=== PATIENT | female | born 1995 | race Caucasian/White ===

== ENCOUNTER 2016-10-10 11:14 | Emergency (ER) | payer BC ==
[2016-10-10 12:02] VITALS: BP 121/67
--- NOTE | 2016-10-10 13:22 | UC ---
Complaint Female HPI - HPI Summary HPI Summary: 20 yo F has been self cathing since age 5, last UTI age 6. Pt has segmental spinal dysgenesis. Had surgeries when 4 months old and fused her T10-L2 and pt has neurogenic bladder. Pt has feeling like she has to go to the bathroom alot since 10/05/16. Pt caths, and then 20 mins feels like she has to go again. No blood. Pt states urine also looks cloudy. No fever. No back pain. No dysuria when she is cathing. - History Of Current Complaint Chief Complaint: UCGU Stated Complaint: URINARY Time Seen by Provider: 10/10/16 13:13 Hx Obtained From: Patient Hx Last Menstrual Period: 09/26/16 Onset/Duration: Gradual Onset, Lasting Days, Still Present Timing: Constant Severity Currently: None Pain Intensity: 0 Pain Scale Used: 0-10 Numeric Character: Not Applicable - just urgency Aggravating Factor(s): Nothing Alleviating Factor(s): Nothing Associated Signs And Symptoms: Negative: Fever, Back Pain, Vaginal Bleeding/ Discharge, Vaginal Discharge - Risk Factors Ectopic Risk Factor: Negative Ovarian Torsion Risk Factor: Negative - Allergies/Home Medications Allergies/Adverse Reactions: Allergies Allergy/AdvReac Type Severity Reaction Status Date / Time No Known Allergies Allergy Verified 10/10/16 12:02 PMH/Surg Hx/FS Hx/Imm Hx Previously Healthy: No - spinal fusion since age 4months - Surgical History Surgical History: Yes Surgery Procedure, Year, and Place: 2-back surgeries, bilateral hip surgery, right knee - Family History Known Family History: Positive: Cardiac Disease - grandfather with bad valve - Social History Occupation: Student Alcohol Use: None Substance Use Type: None Smoking Status (MU): Never Smoked Tobacco Review of Systems Constitutional: Negative Skin: Negative Eyes: Negative ENT: Negative Respiratory: Negative Cardiovascular: Negative Gastrointestinal: Negative Genitourinary: Frequency, Urgency Motor: Negative Neurovascular: Negative Musculoskeletal: Negative Neurological: Negative Psychological: Negative All Other Systems Reviewed And Are Negative: Yes Physical Exam Triage Information Reviewed: Yes Appearance: Well-Appearing, No Pain Distress, Well-Nourished Vital Signs: Initial Vital Signs Temp 97.8 F 10/10/16 11:58 Pulse 64 10/10/16 11:58 Resp 16 10/10/16 11:58 BP 121/67 10/10/16 11:58 Pulse Ox 100 10/10/16 11:58 Vital Signs Reviewed: Yes Eyes: Positive: Conjunctiva Clear ENT: Positive: Normal ENT inspection Neck: Positive: Supple Respiratory: Positive: No respiratory distress Cardiovascular: Positive: RRR, Pulses Normal, Brisk Capillary Refill Abdomen Description: Positive: Nontender, No Organomegaly, Soft. Negative: CVA Tenderness (R), CVA Tenderness (L), Distended, Guarding, Hepatomegaly, McBurney' s Point Tenderness, Peritoneal Signs, Pulsatile Mass, Splenomegaly Bowel Sounds: Positive: Present Musculoskeletal: Positive: Strength Intact, ROM Intact Neurological: Positive: Alert, Muscle Tone Normal Psychological Exam: Normal Skin Exam: Normal Complaint Female Dx - Course Course Of Treatment: UA 500 wbc's, no blood, 1.010. UCG neg. Pt sees Dr. Montgomery in [place] for urology. Has Dr. Tresa Macedo is pt's primary in [place] - Differential Dx/Diagnosis Differential Diagnosis/HQI/PQRI: Urinary Tract Infection Provider Diagnoses: UTI. neurogenic bladder Discharge - Discharge Plan Condition: Stable Disposition: HOME Prescriptions: Sulfamethox/Trimethoprim DS* [Bactrim DS 800/160 TAB*] 1 tab PO BID #14 tab Patient Education Materials: Urinary Tract Infection in Women (ED) Referrals: Non Staff,Doctor [Primary Care Provider] -
== END 2016-10-10 13:50 | disposition home or self-care (01) ==
LOC: UCCORT 11:14
DX: N39.0 Urinary tract infection, site not specified (principal); N31.9 Neuromuscular dysfunction of bladder, unspecified
CPT/HCPCS: 81025; 87077; 87086; 87186; 99212; G0463

== ENCOUNTER 2017-05-09 10:11 | Emergency (ER) | payer BC ==
--- NOTE | 2017-05-09 12:30 | UC ---
Complaint Female HPI - HPI Summary HPI Summary: Believes she may have a tampon inserted that she cannot reach - History Of Current Complaint Chief Complaint: UCGeneralIllness Stated Complaint: PERSONAL Time Seen by Provider: 05/09/17 12:19 Hx Obtained From: Patient Hx Last Menstrual Period: 05/07/17 ?: No Onset/Duration: Sudden Onset, Lasting Days - 1 Timing: Constant Severity Initially: Mild Severity Currently: Mild Pain Intensity: 0 - usual menstral cramps Pain Scale Used: 0-10 Numeric Character: Cramping Aggravating Factor(s): Nothing Alleviating Factor(s): Nothing Associated Signs And Symptoms: Positive: Vaginal Bleeding/Discharge - menses - Allergies/Home Medications Allergies/Adverse Reactions: Allergies Allergy/AdvReac Type Severity Reaction Status Date / Time No Known Allergies Allergy Verified 05/09/17 10:47 Home Medications: Home Medications Ibuprofen [Advil] 400 mg PO ONCE PRN 05/09/17 [History Confirmed 05/09/17] Tolterodine (NF) [Detrol (NF)] 2 mg PO BID 05/09/17 [History Confirmed 05/09/17] PMH/Surg Hx/FS Hx/Imm Hx Previously Healthy: No - neuromusclar disorder - Surgical History Surgical History: Yes Surgery Procedure, Year, and Place: 2-back surgeries, bilateral hip surgery, right knee - Family History Known Family History: Positive: Cardiac Disease - grandfather with bad valve - Social History Occupation: Student Lives: Dormitory/Roommates Alcohol Use: Occasionally Substance Use Type: None Smoking Status (MU): Never Smoked Tobacco Review of Systems Constitutional: Negative Skin: Negative Eyes: Negative ENT: Negative Respiratory: Negative Cardiovascular: Negative Gastrointestinal: Negative Genitourinary: Negative, Other - no sx but is concerned she has a Tampon in vagina Motor: Negative Neurovascular: Negative Musculoskeletal: Negative Neurological: Negative Psychological: Negative Is Patient Immunocompromised?: No All Other Systems Reviewed And Are Negative: Yes Physical Exam Triage Information Reviewed: Yes Appearance: Well-Appearing, No Pain Distress, Well-Nourished Vital Signs: Initial Vital Signs Temp 97.5 F 05/09/17 10:49 Pulse 74 05/09/17 10:49 Resp 16 05/09/17 10:49 BP 115/61 05/09/17 10:49 Pulse Ox 100 09/23/17 10:49 Vital Signs Reviewed: Yes Eye Exam: Normal Eyes: Positive: Conjunctiva Clear ENT Exam: Normal ENT: Positive: Normal ENT inspection, Hearing grossly normal. Negative: Nasal congestion, Nasal drainage, Trismus, Muffled/hoarse voice Dental Exam: Normal Neck exam: Normal Neck: Positive: Supple, Nontender, No Lymphadenopathy Respiratory Exam: Normal Respiratory: Positive: Chest non-tender, No respiratory distress, No accessory muscle use Cardiovascular Exam: Normal Cardiovascular: Positive: RRR, No Murmur, Brisk Capillary Refill Abdominal Exam: Normal Abdomen Description: Positive: Nontender, No Organomegaly, Soft. Negative: CVA Tenderness (R), CVA Tenderness (L) Bowel Sounds: Positive: Present Musculoskeletal Exam: Normal Musculoskeletal: Positive: Strength Intact, ROM Intact, No Edema Neurological Exam: Normal Neurological: Positive: Alert, Muscle Tone Normal Psychological Exam: Normal Skin Exam: Normal UC Physical Exam Vital Signs On Initial Exam: Initial Vitals Temp Pulse Resp BP Pulse Ox 97.5 F 74 16 115/61 100 05/09/17 10:49 05/09/17 10:49 05/09/17 10:49 05/09/17 10:49 05/09/17 10:49 - Genitalia Exam Female Genitourinary: Normal External Exam, Normal Vaginal Exam, Other - normal examination, no tampon on visual or keo examination Re-Evaluation - Re-Evaluation First Eval Change: Improved - tolerated procedure well Complaint Female Dx - Course Course Of Treatment: no change in treatment or care plan --no tampon present, patient has histosy of chronic UTI-is requesting urine culture - Differential Dx/Diagnosis Differential Diagnosis/HQI/PQRI: Renal Colic, Ureteral Stone, Urinary Tract Infection Provider Diagnoses: Normal vaginal exam no FB present, chronic UTI, Discharge - Discharge Plan Condition: Stable Disposition: HOME Patient Education Materials: Vaginal Foreign Body (ED) Referrals: [facility] [Outside] - If Needed [facility] [Outside] - If Needed Additional Instructions: You have no evidence of Foreign Body in your Vagina---I suspect your tampon fell out while having a bowel movement last night
[2017-05-09 12:54] VITALS: BP 110/73
== END 2017-05-09 12:49 | disposition home or self-care (01) ==
LOC: UCCORT 10:11
DX: Z04.8 Encounter for examination and observation for other specified reasons (principal); N39.0 Urinary tract infection, site not specified
CPT/HCPCS: 87086; 99212; G0463

== ENCOUNTER 2018-12-31 18:52 | Emergency (ER) | payer BC ==
[2018-12-31 19:14] VITALS: BP 129/73
[2018-12-31] MEDS ORDERED: predniSONE TAB* 20 MG PO ONE (19:39)
[2018-12-31] MEDS ORDERED: Albuterol HFA INHALER* 8 gm MDI INH ONE (19:39)
--- NOTE | 2018-12-31 19:42 | UC ---
Respiratory Complaint HPI - HPI Summary HPI Summary: 23 yo female with nasal congestion/post nasal drip x 1 1/2 -2 weeks using claritin and flonase now with chest tightness and wheezing has had to use inhalers before with allergies no cp or sob - History of Current Complaint Chief Complaint: UCGeneralIllness Stated Complaint: EARS,COUGH,SINUSES Time Seen by Provider: 12/31/18 19:31 Hx Obtained From: Patient Hx Last Menstrual Period: on Lo Loestrin Fe Onset/Duration: Sudden Onset, Lasting Weeks Timing: Constant Severity Initially: Mild Severity Currently: Moderate Pain Intensity: 0 Pain Scale Used: 0-10 Numeric Character: Cough: Nonproductive Aggravating Factors: Nothing Alleviating Factors: Nothing Associated Signs And Symptoms: Positive: Wheezing, Nasal Congestion - Allergies/Home Medications Allergies/Adverse Reactions: Allergies Allergy/AdvReac Type Severity Reaction Status Date / Time No Known Allergies Allergy Verified 12/31/18 19:14 Home Medications: Home Medications Loratadine [Claritin 10 MG CAP] 10 mg PO DAILY 12/31/18 [History Confirmed 12/31] Norethindr/Eth Estradiol(Nf) [Lo Loestrin Fe (NF)] 1 tab BEDTIME 12/31/18 [ History Confirmed 12/31/18] PMH/Surg Hx/FS Hx/Imm Hx Previously Healthy: Yes Respiratory History: Bronchitis - Surgical History Surgical History: Yes Surgery Procedure, Year, and Place: 2-back surgeries, bilateral hip surgery, right knee - Family History Known Family History: Positive: Cardiac Disease - grandfather with bad valve, Respiratory Disease - bro with asthma - Social History Alcohol Use: Occasionally Alcohol Amount: 1-2 times a week Substance Use Type: None Smoking Status (MU): Never Smoked Tobacco Review of Systems All Other Systems Reviewed And Are Negative: Yes Constitutional: Positive: Negative Skin: Positive: Negative Eyes: Positive: Negative ENT: Positive: Sore Throat, Nasal Discharge, Sinus Congestion, Sinus Pain/ Tenderness Respiratory: Positive: Cough Cardiovascular: Positive: Negative Gastrointestinal: Positive: Negative Genitourinary: Positive: Negative Motor: Positive: Negative Neurovascular: Positive: Negative Musculoskeletal: Positive: Negative Neurological: Positive: Negative Psychological: Positive: Negative Physical Exam Triage Information Reviewed: Yes Appearance: Well-Appearing, No Pain Distress, Well-Nourished Vital Signs: Initial Vital Signs Temp 97.5 F 12/31/18 19:09 Pulse 103 12/31/18 19:09 Resp 18 12/31/18 19:09 BP 129/73 12/31/18 19:09 Pulse Ox 100 12/31/18 19:09 Vital Signs Reviewed: Yes Eyes: Positive: Conjunctiva Clear ENT: Positive: Hearing grossly normal, Sinus tenderness. Negative: Nasal congestion, Nasal drainage, Trismus, Muffled voice, Hoarse voice Neck: Positive: Supple, Nontender, No Lymphadenopathy Respiratory: Positive: No respiratory distress, No accessory muscle use, Wheezing, Other: - bronchospastic cough Cardiovascular: Positive: RRR, No Murmur Musculoskeletal: Positive: Other: - uses crutches to ambulate Neurological: Positive: Alert Psychological Exam: Normal Skin Exam: Normal Respiratory Course/Dx - Differential Dx/Diagnosis Provider Diagnosis: Seasonal allergic rhinitis, Bronchospasm Discharge - Sign-Out/Discharge Documenting (check all that apply): Patient Departure All imaging exams completed and their final reports reviewed: No Studies - Discharge Plan Condition: Stable Disposition: HOME Prescriptions: predniSONE [Deltasone 20 MG TAB] 40 mg PO DAILY #8 tab Patient Education Materials: Allergic Rhinitis (ED), Bronchospasm (ED), How to Use a Metered-Dose Inhaler and a Spacer (ED) Referrals: No Primary Care Phys,NOPCP [Primary Care Provider] - Additional Instructions: recheck here or with your MD in 3-4 days if not better continue claritin use your flonase 2 sprays each nostril twice daily - Billing Disposition and Condition Condition: STABLE Disposition: Home
== END 2018-12-31 19:54 | disposition home or self-care (01) ==
LOC: UCCORT 18:52
DX: J30.2 Other seasonal allergic rhinitis (principal); J98.01 Acute bronchospasm
CPT/HCPCS: 99213; A9270-GY; G0463; J7512

== ENCOUNTER 2019-07-07 18:32 | Emergency (ER) | payer BC ==
[2019-07-07 19:10] VITALS: BP 118/62
--- NOTE | 2019-07-07 19:14 | UC ---
Complaint Female HPI - HPI Summary HPI Summary: Pt presents with c/o urinary frequency, urgency and dysuria X 2 days. Pt has hx of neurogenic bladder and straight caths at home. Pt has hx of frequent UTI's - History Of Current Complaint Stated Complaint: URINARY Time Seen by Provider: 07/07/19 18:55 Hx Obtained From: Patient Hx Last Menstrual Period: 07/06/19 ?: No Onset/Duration: Sudden Onset, Lasting Days, Still Present Timing: Constant Severity Initially: Mild Severity Currently: Mild Pain Intensity: 0 Character: Dull, Burning, Colicy Aggravating Factor(s): Urination Alleviating Factor(s): Nothing Associated Signs And Symptoms: Positive: Negative - Risk Factors Ectopic Risk Factor: Negative Ovarian Torsion Risk Factor: Reproductive Age - Allergies/Home Medications Allergies/Adverse Reactions: Allergies Allergy/AdvReac Type Severity Reaction Status Date / Time No Known Allergies Allergy Verified 07/07/19 19:01 Home Medications: Home Medications Fexofenadine (NF) [Angelic 180 (NF)] 180 mg PO DAILY 07/07/19 [History Confirmed 07/07/19] Ibuprofen TAB* [Advil TAB*] 200 mg PO Q6H PRN 07/07/19 [History Confirmed ] PMH/Surg Hx/FS Hx/Imm Hx Previously Healthy: Yes - Surgical History Surgical History: Yes Surgery Procedure, Year, and Place: 2-back surgeries, bilateral hip surgery, right knee - Family History Known Family History: Positive: Cardiac Disease - grandfather with bad valve, Respiratory Disease - bro with asthma - Social History Occupation: Student Lives: With Family Alcohol Use: Weekly Alcohol Amount: 1-2 times a week Substance Use Type: None Smoking Status (MU): Never Smoked Tobacco Have You Smoked in the Last Year: No - Immunization History Vaccination Up to Date: Yes Review of Systems All Other Systems Reviewed And Are Negative: Yes Constitutional: Positive: Negative Skin: Positive: Negative Eyes: Positive: Negative ENT: Positive: Negative Respiratory: Positive: Negative Cardiovascular: Positive: Negative Gastrointestinal: Positive: Negative Genitourinary: Positive: Dysuria, Frequency, Urgency Motor: Positive: Negative Neurovascular: Positive: Negative Musculoskeletal: Positive: Negative Neurological: Positive: Negative Psychological: Positive: Negative Is Patient Immunocompromised?: No Physical Exam Triage Information Reviewed: Yes Appearance: Well-Appearing Vital Signs: Initial Vital Signs Temp 98.5 F 11/21/19 19:04 Pulse 71 07/07/19 19:04 Resp 20 07/07/19 19:04 BP 118/62 07/07/19 19:04 Pulse Ox 100 07/07/19 19:04 Vital Signs Reviewed: Yes Eye Exam: Normal ENT: Positive: Hearing grossly normal Dental Exam: Normal Respiratory: Positive: No respiratory distress Musculoskeletal Exam: Other - uses bialteral canes for ambualtion assistance Neurological Exam: Normal, Other - at baseline Psychological Exam: Normal Skin Exam: Normal Complaint Female Dx - Differential Dx/Diagnosis Differential Diagnosis/HQI/PQRI: Urinary Tract Infection Provider Diagnosis: UTI (urinary tract infection) Discharge ED - Sign-Out/Discharge Documenting (check all that apply): Patient Departure All imaging exams completed and their final reports reviewed: No Studies - Discharge Plan Condition: Stable Disposition: HOME Prescriptions: Cephalexin CAP* [Keflex 500 CAP*] 500 mg PO Q12H #14 cap Patient Education Materials: Urinary Tract Infection in Women (ED) Referrals: Tresa Macedo MD [Primary Care Provider] - If Needed - Billing Disposition and Condition Condition: STABLE Disposition: Home - Attestation Statements Provider Attestation: I was available for consult. This patient was seen by the LUIS ALBERTO. The patient was not presented to, seen by, or examined by me. -Annette
== END 2019-07-07 19:24 | disposition home or self-care (01) ==
LOC: UCCORT 18:32
DX: N39.0 Urinary tract infection, site not specified (principal); N31.9 Neuromuscular dysfunction of bladder, unspecified
CPT/HCPCS: 81003; 87086; 99212; G0463